=== PATIENT | male | born 1970 | race Caucasian/White ===

== ENCOUNTER 2018-06-04 01:00 | Emergency (ER) | payer BC ==
[~2018-06-04] VITALS: Ht 177.8 cm; Wt 99.8 kg
[2018-06-04 01:00] VITALS: BP 154/96
[2018-06-04 01:22] LABS: HEMATOCRIT 48.2 % (42.0-52.0); MCH 29.5 pg (26.0-34.0); MCHC 35.2 g/dL (28.0-37.0); MCV 83.8 fL (80.0-100.0); PLATELET COUNT 205 thou/uL (150-400); RBC 5.75 mil/uL (4.50-6.00); RDW 13.4 % (10.5-14.5); WBC 12.6 thou/uL (4.0-11.0)
[2018-06-04 01:28] LABS: ANION GAP 16 mmol/L (7-16); BUN 23 mg/dL (7-18); CALCIUM 9.3 mg/dL (8.5-10.1); CHLORIDE 100 mmol/L (98-107); CO2 23 mmol/L (21-32); CREATININE 1.4 mg/dL (0.7-1.3); GLUCOSE 136 mg/dL (74-106); POTASSIUM 3.1 mmol/L (3.5-5.1); SODIUM 139 mmol/L (136-145)
[2018-06-04 01:37] LABS: TROPONIN-I <0.06 ng/mL (<0.06)
[2018-06-04 01:47] LABS: ABSOLUTE NEUTROPHILS 8.8 thou/uL (1.4-8.2)
[2018-06-04 01:48] LABS: PLATELET ESTIMATE NORMAL
--- NOTE | 2018-06-04 08:32 | EKG ---
[address] [address] [place] [address] ELECTROCARDIOGRAM REPORT Name: NGOZI KERNSICK Room #: DEP RAZ Velazquez#: [id number] Admission: 06/04/18 Attend Phys: Discharge: 06/04/18 Date of : 74 Report #: [id number] THIS REPORT FOR: //name// [facility] ED Test Date: 2018-06-04 Test Time: 01:14:17 Pat Name: MACIE KERNS Department: Room: Gender: Crane Hoist Or Lift Operator: JANKI : 1970 Requested By: Jia Ronquillo Order Number: [id number] MD: Arsalan Briceño Measurements Intervals [place] Rate: 81 P: 43 MN: 160 QRS: 80 QRSD: 89 T: 26 QT: 376 QTc: 437 Interpretive Statements Sinus rhythm Abnormal R-wave progression, late transition No previous ECG available for comparison Electronically Signed On 06-04-2018 8:31:52 ELECTRICAL TECHNICIAN INSTRUCTOR by Arsalan Briceño [email or web address] <ELECTRONICALLY SIGNED> By: Arsalan Briceño MD, [facility] 06/04/18 0831 [id number] Arsalan Briceño MD, FACC /EPI
== END 2018-06-04 02:14 | disposition home or self-care (01) ==
LOC: ER 01:00
PROVIDERS: Student in an Organized Health Care Education/Training Program
DX: R19.7 Diarrhea, unspecified (principal); E87.6 Hypokalemia; R55 Syncope and collapse